=== PATIENT | female | born 1955 | race Caucasian/White ===

== ENCOUNTER 2021-05-08 14:00 | Outpatient (RCR) | payer BC, SELFPAY ==
[2021-05-08 12:53] VITALS: BMI 37.2
[2021-05-08 13:21] VITALS: BMI 35.2
[2021-05-08 13:22] VITALS: BMI 35.2
== END 2021-05-16 15:27 | disposition home or self-care (01) ==
LOC: ANHDMC 14:00
PROVIDERS: Visit Provider Nurse Practitioner Family
DX: E11.65 Type 2 diabetes mellitus with hyperglycemia (principal); Z71.3 Dietary counseling and surveillance; Z71.89 Other specified counseling
CPT/HCPCS: 97802; G0108